=== PATIENT | male | born 1945 | race Caucasian/White ===

== ENCOUNTER 2017-05-03 09:53 | Inpatient (IN) | payer MEDICARE, MEDICAID ==
[~2017-05-03] VITALS: Ht 188 cm; Wt 97.8 kg
[2017-05-03 10:18] LABS: BASOPHILS % (AUTO) 0.4 % (0.0-2.0); EOSINOPHILS % (AUTO) 3.6 % (1.0-6.0); HEMATOCRIT 40.1 % (41-53); HEMOGLOBIN 13.3 g/dL (13.5-17.5); LYMPHOCYTES # (AUTO) 1.1 K/uL (1.0-4.8); LYMPHOCYTES % (AUTO) 17.6 % (22.0-44.0); MEAN CORPUSCULAR HEMOGLOBIN 28.4 pg (26.0-34.0); MEAN CORPUSCULAR HGB CONC 33.2 G/dL (31.0-37.0); MEAN CORPUSCULAR VOLUME 85 fL (80-100); MONOCYTES # (AUTO) 0.5 K/uL (0.1-1.0); MONOCYTES % (AUTO) 8.2 % (2.0-9.0); NEUTROPHILS # (AUTO) 4.2 K/uL (1.8-7.7); NEUTROPHILS % (AUTO) 70.2 % (40.0-70.0); PLATELET COUNT (AUTO) 358 K/uL (150-450); RED CELL DISTRIBUTION WIDTH 17.8 % (11.5-14.5)
[2017-05-03 10:24] LABS: ANION GAP 4 mmol/L (8-16); CARBON DIOXIDE 32 mmol/L (22-29); CHLORIDE 105 mmol/L (98-107); CREATININE 1.23 mg/dL (0.60-1.30); GLOMERULAR FILTR. RATE CALC 58 mL/min (>60); GLUCOSE,RANDOM 101 mg/dL (70-110); POTASSIUM 4.1 mmol/L (3.5-5.1); SODIUM SERUM 141 mmol/L (136-145); UREA NITROGEN, BLOOD 16 mg/dL (7-18)
[2017-05-03 10:30] LABS: ALANINE AMINOTRANSFERASE 24 U/L (12-78); ALBUMIN 3.6 g/dL (3.4-5.0); ALKALINE PHOSPHATASE 83 U/L (46-116); ASPARTATE AMINOTRANSFERASE 23 U/L (15-37); BILIRUBIN,TOTAL 0.7 mg/dL (0.1-1.0); TOTAL PROTEIN, SERUM 7.1 g/dL (6.4-8.2)
[2017-05-03 10:30] LABS: AMPHET/METH SCREEN,URINE NEGATIVE (NEGATIVE); BARBITURATE SCREEN, URINE NEGATIVE (NEGATIVE); BENZODIAZEPINES SCREEN,URINE NEGATIVE (NEGATIVE); CANNABINOID SCREEN,URINE NEGATIVE (NEGATIVE); COCAINE SCREEN,URINE NEGATIVE (NEGATIVE); METHADONE SCREEN, URINE NEGATIVE (NEGATIVE); OPIATE SCREEN,URINE NEGATIVE (NEGATIVE); PHENCYCLIDINE SCREEN,URINE NEGATIVE (NEGATIVE)
[2017-05-03] MEDS ORDERED: OLANZapine 5 MG RAPDIS TABLET PO PRN (13:00)
[2017-05-03] MEDS ORDERED: ZOLPIDEM TARTRATE 10 MG TABLET PO PRN (13:00)
[2017-05-03] MEDS ORDERED: LORazepam 2 MG TABLET PO PRN (13:00)
[2017-05-03 13:25] LABS: CHOL/HDL RATIO 2.5 (4.2-7.3)
[2017-05-03] MEDS ORDERED: IBUPROFEN 400 MG TABLET PO PRN (18:45)
[2017-05-03] MEDS ORDERED: PERMETHRIN 5% 60 GM CREAM TP ONE (20:30)
[2017-05-03] MEDS ORDERED: PNEUMOCOCCAL VACCINE POLYVALENT 0.5 ML VIAL [PPSV23] IM ONE (21:15)
[2017-05-03] MEDS ORDERED: INFLUENZA VIRUS VACCINE QVS 2017-18 (3YR+)/PF 60 MCG/0.5 ML SYRINGE IM ONE (21:15)
[2017-05-04] MEDS ORDERED: HydrOXYzine PAMOATE 50 MG CAPSULE PO PRN (06:45)
[2017-05-04] MEDS ORDERED: ACETAMINOPHEN 325 MG TABLET PO PRN (06:45)
[2017-05-04] MEDS ORDERED: MAGNESIUM HYDROXIDE SUSPENSION 30 ML UDCUP PO PRN (06:45)
[2017-05-04] MEDS ORDERED: TUBERCULIN, PURIFIED PROTEIN DERIVATIVE 5 TU/0.1 ML SYG ID ONE (06:45)
[2017-05-04] MEDS ORDERED: MAG HYDROX/AL HYDROX/SIMETH ES 30 ML SUSPENSION UDCUP PO PRN (06:45)
[2017-05-04] MEDS ORDERED: LOPERAMIDE HCL 2 MG CAPSULE PO PRN (06:45)
[2017-05-04] MEDS ORDERED: GuaiFENesin/D-METHORPHAN [SUGAR-FREE] 200-20MG/10 ML SYRUP UDCUP PO PRN (06:45)
[2017-05-04] MEDS ORDERED: PROMETHAZINE HCL 25 MG TABLET PO PRN (06:45)
[2017-05-04 08:00] VITALS: BP 132/91
[2017-05-04 08:35] LABS: HEMOGLOBIN A1C 5.7 % (4.5-6.2)
[2017-05-04 08:49] LABS: THYROID STIMULATING HORMONE 2.08 uIU/mL (0.36-3.74)
[2017-05-04] MEDS: FOLIC ACID 1 MG TABLET PO SCH (09:46)
[2017-05-04] MEDS: BACITRACIN 28.4 GM OINTMENT TP SCH (09:46)
[2017-05-04] MEDS: MULTIVITAMINS WITH MINERALS, THERAPEUTIC TABLET PO SCH (09:46)
[2017-05-04] MEDS: THIAMINE HCL 100 MG TABLET PO SCH ×2 (09:46→18:00)
[2017-05-04 17:21] VITALS: BP 139/87
[2017-05-04] MEDS: DIVALPROEX SODIUM 500 MG ER TABLET PO SCH (21:00)
[2017-05-04] MEDS: OLANZapine 5 MG RAPDIS TABLET PO SCH (21:00)
[2017-05-05 08:00] VITALS: BP 149/98
[2017-05-05] MEDS: THIAMINE HCL 100 MG TABLET PO SCH ×2 (08:49→17:57)
[2017-05-05] MEDS: FOLIC ACID 1 MG TABLET PO SCH (08:49)
[2017-05-05] MEDS: MULTIVITAMINS WITH MINERALS, THERAPEUTIC TABLET PO SCH (08:49)
[2017-05-05] MEDS: BACITRACIN 28.4 GM OINTMENT TP SCH (15:03)
[2017-05-05 16:21] VITALS: BP 139/82
[2017-05-05] MEDS: DIVALPROEX SODIUM 500 MG ER TABLET PO SCH (20:46)
[2017-05-05] MEDS: OLANZapine 5 MG RAPDIS TABLET PO SCH (20:46)
[2017-05-06 08:56] VITALS: BP 158/98
[2017-05-06] MEDS: FOLIC ACID 1 MG TABLET PO SCH (09:07)
[2017-05-06] MEDS: THIAMINE HCL 100 MG TABLET PO SCH ×2 (09:07→17:14)
[2017-05-06] MEDS: BACITRACIN 28.4 GM OINTMENT TP SCH (09:07)
[2017-05-06] MEDS: MULTIVITAMINS WITH MINERALS, THERAPEUTIC TABLET PO SCH (09:07)
[2017-05-06] MEDS: DIVALPROEX SODIUM 500 MG ER TABLET PO SCH (20:45)
[2017-05-06] MEDS: OLANZapine 10 MG RAPDIS TABLET PO SCH (20:45)
[2017-05-07 09:12] VITALS: BP 143/84
[2017-05-07] MEDS: THIAMINE HCL 100 MG TABLET PO SCH ×2 (12:23→16:07)
[2017-05-07] MEDS: FOLIC ACID 1 MG TABLET PO SCH (12:23)
[2017-05-07] MEDS: BACITRACIN 28.4 GM OINTMENT TP SCH (12:23)
[2017-05-07] MEDS: MULTIVITAMINS WITH MINERALS, THERAPEUTIC TABLET PO SCH (12:23)
[2017-05-07] MEDS: DIVALPROEX SODIUM 500 MG ER TABLET PO SCH (20:19)
[2017-05-07] MEDS: OLANZapine 10 MG RAPDIS TABLET PO SCH (20:20)
[2017-05-07 20:24] VITALS: BP 144/86
[2017-05-08] MEDS: FOLIC ACID 1 MG TABLET PO SCH (08:33)
[2017-05-08] MEDS: MULTIVITAMINS WITH MINERALS, THERAPEUTIC TABLET PO SCH (08:33)
[2017-05-08] MEDS: THIAMINE HCL 100 MG TABLET PO SCH ×2 (08:34→16:22)
[2017-05-08] MEDS: BACITRACIN 28.4 GM OINTMENT TP SCH (08:34)
[2017-05-08 09:00] VITALS: BP 129/84
[2017-05-08 18:00] VITALS: BP 150/96
[2017-05-08] MEDS: OLANZapine 10 MG RAPDIS TABLET PO SCH (20:47)
[2017-05-08] MEDS: DIVALPROEX SODIUM 500 MG ER TABLET PO SCH (20:47)
[2017-05-09 08:00] VITALS: BP 120/74
[2017-05-09] MEDS: MULTIVITAMINS WITH MINERALS, THERAPEUTIC TABLET PO SCH (08:20)
[2017-05-09] MEDS: ASPIRIN 81 MG EC TABLET PO SCH (08:20)
[2017-05-09] MEDS: FOLIC ACID 1 MG TABLET PO SCH (08:20)
[2017-05-09] MEDS: THIAMINE HCL 100 MG TABLET PO SCH ×2 (08:20→16:34)
[2017-05-09] MEDS: BACITRACIN 28.4 GM OINTMENT TP SCH (13:04)
[2017-05-09] MEDS: DIVALPROEX SODIUM 500 MG ER TABLET PO SCH (21:05)
[2017-05-09] MEDS: OLANZapine 10 MG RAPDIS TABLET PO SCH (21:12)
[2017-05-10] MEDS: MULTIVITAMINS WITH MINERALS, THERAPEUTIC TABLET PO SCH (08:31)
[2017-05-10] MEDS: FOLIC ACID 1 MG TABLET PO SCH (08:31)
[2017-05-10] MEDS: THIAMINE HCL 100 MG TABLET PO SCH ×2 (08:31→16:22)
[2017-05-10] MEDS: ASPIRIN 81 MG EC TABLET PO SCH (08:32)
[2017-05-10] MEDS: BACITRACIN 28.4 GM OINTMENT TP SCH (08:56)
[2017-05-10 10:50] VITALS: BP 125/71
[2017-05-10] MEDS: OLANZapine 10 MG RAPDIS TABLET PO SCH (20:11)
[2017-05-10] MEDS: DIVALPROEX SODIUM 500 MG ER TABLET PO SCH (20:11)
[2017-05-11 06:00] VITALS: BP 132/90
[2017-05-11 08:14] VITALS: BP 139/84
[2017-05-11] MEDS: MULTIVITAMINS WITH MINERALS, THERAPEUTIC TABLET PO SCH (08:42)
[2017-05-11] MEDS: FOLIC ACID 1 MG TABLET PO SCH (08:42)
[2017-05-11] MEDS: BACITRACIN 28.4 GM OINTMENT TP SCH (08:43)
[2017-05-11] MEDS: THIAMINE HCL 100 MG TABLET PO SCH ×2 (08:43→16:39)
[2017-05-11] MEDS: ASPIRIN 81 MG EC TABLET PO SCH (08:43)
[2017-05-11] MEDS ORDERED: BISACODYL 5 MG EC TABLET PO PRN (11:45)
[2017-05-11 18:45] VITALS: BP 113/86
[2017-05-11] MEDS: OLANZapine 10 MG RAPDIS TABLET PO SCH (20:16)
[2017-05-11] MEDS: DIVALPROEX SODIUM 500 MG ER TABLET PO SCH (20:16)
[2017-05-12 08:14] VITALS: BP 141/75
[2017-05-12] MEDS: MULTIVITAMINS WITH MINERALS, THERAPEUTIC TABLET PO SCH (08:35)
[2017-05-12] MEDS: ASPIRIN 81 MG EC TABLET PO SCH (08:35)
[2017-05-12] MEDS: FOLIC ACID 1 MG TABLET PO SCH (08:35)
[2017-05-12] MEDS: THIAMINE HCL 100 MG TABLET PO SCH ×2 (08:35→16:18)
[2017-05-12] MEDS: BACITRACIN 28.4 GM OINTMENT TP SCH (09:19)
[2017-05-12 17:37] VITALS: BP 125/75
[2017-05-12] MEDS: DIVALPROEX SODIUM 500 MG ER TABLET PO SCH (20:56)
[2017-05-12] MEDS: OLANZapine 10 MG RAPDIS TABLET PO SCH (20:56)
[2017-05-13 08:20] VITALS: BP 152/80
[2017-05-13] MEDS: ASPIRIN 81 MG EC TABLET PO SCH (08:49)
[2017-05-13] MEDS: MULTIVITAMINS WITH MINERALS, THERAPEUTIC TABLET PO SCH (08:49)
[2017-05-13] MEDS: THIAMINE HCL 100 MG TABLET PO SCH ×2 (08:49→17:00)
[2017-05-13] MEDS: FOLIC ACID 1 MG TABLET PO SCH (08:49)
[2017-05-13] MEDS: BACITRACIN 28.4 GM OINTMENT TP SCH (08:50)
[2017-05-13 20:00] VITALS: BP 141/79
[2017-05-13] MEDS: DIVALPROEX SODIUM 500 MG ER TABLET PO SCH (20:40)
[2017-05-13] MEDS: OLANZapine 10 MG RAPDIS TABLET PO SCH (20:40)
[2017-05-14] MEDS: ASPIRIN 81 MG EC TABLET PO SCH (08:31)
[2017-05-14] MEDS: MULTIVITAMINS WITH MINERALS, THERAPEUTIC TABLET PO SCH (08:31)
[2017-05-14 08:42] VITALS: BP 120/69
[2017-05-14] MEDS: OLANZapine 10 MG RAPDIS TABLET PO SCH (20:38)
[2017-05-14] MEDS: DIVALPROEX SODIUM 500 MG ER TABLET PO SCH (20:38)
[2017-05-15] MEDS: ASPIRIN 81 MG EC TABLET PO SCH (08:29)
[2017-05-15] MEDS: MULTIVITAMINS WITH MINERALS, THERAPEUTIC TABLET PO SCH (08:29)
[2017-05-15 09:00] VITALS: BP 138/75
[2017-05-15 16:34] VITALS: BP 134/78
[2017-05-15] MEDS: OLANZapine 10 MG RAPDIS TABLET PO SCH (21:05)
[2017-05-15] MEDS: DIVALPROEX SODIUM 500 MG ER TABLET PO SCH (21:05)
[2017-05-16] MEDS: ASPIRIN 81 MG EC TABLET PO SCH (08:33)
[2017-05-16] MEDS: MULTIVITAMINS WITH MINERALS, THERAPEUTIC TABLET PO SCH (08:33)
[2017-05-16 08:48] VITALS: BP 113/78
[2017-05-16 16:00] VITALS: BP 126/83
[2017-05-16] MEDS: DIVALPROEX SODIUM 500 MG ER TABLET PO SCH (20:44)
[2017-05-16] MEDS: OLANZapine 10 MG RAPDIS TABLET PO SCH (20:44)
[2017-05-17 07:30] VITALS: BP 168/104
[2017-05-17] MEDS: MULTIVITAMINS WITH MINERALS, THERAPEUTIC TABLET PO SCH (08:23)
[2017-05-17] MEDS: ASPIRIN 81 MG EC TABLET PO SCH (08:24)
[2017-05-17 08:47] VITALS: BP 168/104
[2017-05-17 09:47] VITALS: BP 125/75
[2017-05-17 17:45] VITALS: BP 126/72
[2017-05-17] MEDS: DIVALPROEX SODIUM 500 MG ER TABLET PO SCH (20:23)
[2017-05-17] MEDS: OLANZapine 10 MG RAPDIS TABLET PO SCH (20:24)
[2017-05-17 21:35] VITALS: BP 133/86
[2017-05-17] MEDS: ACETAMINOPHEN 325 MG TABLET PO PRN (21:38)
[2017-05-17 22:35] VITALS: BP 129/74
[2017-05-18 05:00] VITALS: BP 131/72
[2017-05-18] MEDS: MULTIVITAMINS WITH MINERALS, THERAPEUTIC TABLET PO SCH (07:51)
[2017-05-18] MEDS: ASPIRIN 81 MG EC TABLET PO SCH (07:51)
[2017-05-18 08:20] VITALS: BP 142/99
[2017-05-18 17:35] VITALS: BP 138/74
[2017-05-18] MEDS: OLANZapine 10 MG RAPDIS TABLET PO SCH (20:21)
[2017-05-18] MEDS: DIVALPROEX SODIUM 500 MG ER TABLET PO SCH (20:22)
[2017-05-19] MEDS: MULTIVITAMINS WITH MINERALS, THERAPEUTIC TABLET PO SCH (08:15)
[2017-05-19 08:16] VITALS: BP 118/74
[2017-05-19] MEDS: ASPIRIN 81 MG EC TABLET PO SCH (08:16)
[2017-05-19 17:11] VITALS: BP 112/71
[2017-05-19] MEDS: DIVALPROEX SODIUM 500 MG ER TABLET PO SCH (20:41)
[2017-05-19] MEDS: OLANZapine 10 MG RAPDIS TABLET PO SCH (20:41)
[2017-05-19] MEDS: ACETAMINOPHEN 325 MG TABLET PO PRN (21:10)
[2017-05-19 21:11] VITALS: BP 120/71
[2017-05-20] MEDS: ASPIRIN 81 MG EC TABLET PO SCH (08:13)
[2017-05-20] MEDS: MULTIVITAMINS WITH MINERALS, THERAPEUTIC TABLET PO SCH (08:13)
[2017-05-20 08:50] VITALS: BP 128/88
[2017-05-20] MEDS ORDERED: DIVA500T52 PO (11:56)
[2017-05-20] MEDS ORDERED: OLAN10TA3 PO (11:56)
== END 2017-05-20 14:40 | disposition home or self-care (01) | DRG 885 ==
LOC: EMS 09:56 → 3EC 17:56 → UNDOADMIN 18:14
PROVIDERS: ADMIT Psychiatry & Neurology Psychiatry; ATTEND Psychiatry & Neurology Psychiatry
DX: F25.0 Schizoaffective disorder, bipolar type (principal); N18.9 Chronic kidney disease, unspecified; F22 Delusional disorders; I82.511 Chronic embolism and thrombosis of right femoral vein; D64.9 Anemia, unspecified; E66.9 Obesity, unspecified; F17.210 Nicotine dependence, cigarettes, uncomplicated; G47.00 Insomnia, unspecified; K21.9 Gastro-esophageal reflux disease without esophagitis; K59.00 Constipation, unspecified; R79.89 Other specified abnormal findings of blood chemistry; F19.10 Other psychoactive substance abuse, uncomplicated; Z59.9 Problem related to housing and economic circumstances, unspecified; Z65.3 Problems related to other legal circumstances; Z68.32 Body mass index [BMI] 32.0-32.9, adult; Z88.0 Allergy status to penicillin; Z91.19 Patient's noncompliance with other medical treatment and regimen
CPT/HCPCS: 83036; 84443; 93005; 93970; 99285; G0480